=== PATIENT | male | born 1995 | race Caucasian/White ===

== ENCOUNTER 2016-07-18 01:12 | Emergency (ER) | payer BC ==
[2016-07-18] MEDS ORDERED: ONDANSETRON 4 MG/2 ML VIAL ONE (01:49)
[2016-07-18] MEDS ORDERED: PROPOFOL 200 MG/20 ML VIAL ONE ×2 (01:49)
[2016-07-18] MEDS ORDERED: fentaNYL 100 MCG/2 ML INJ ONE (01:49)
[2016-07-18] MEDS ORDERED: ONDANSETRON 4 MG/2 ML VIAL IVP ONE (02:06)
[2016-07-18] MEDS ORDERED: fentaNYL 100 MCG/2 ML INJ IVP ONE ×2 (02:06→02:37)
[2016-07-18] MEDS ORDERED: PROPOFOL 200 MG/20 ML VIAL IVP ONE (02:37)
[2016-07-18] MEDS ORDERED: HYDROCODONE/APAP 5/325 TAB PO ONE (03:28)
--- NOTE | 2016-07-18 03:32 | EDPHY ---
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 He had a reduced a [place]. He is not yet contacted Orthopedics to arrange follow-up. Patient went to bed this evening not wearing his sling. Rolled over in bed and felt a severe onset of pain in his left shoulder. He noted deformity and states that feels like a dislocation again. Patient states that they attempted to relocated shoulder is without sedation in [place] any is unwilling to attempt this again. Pain is currently 9/10. Had no other injuries noted. Last had something the eat about 8 hours ago. Has no past medical history, medications or allergies. ROS: 10 point Review of Systems is negative except as noted in the HPI. Physical exam: Gen: Awake, Alert, No Distress HEENT: Nose: no rhinorrhea Eyes: PERRLA, EOMI Mouth: Moist mucosa Neck: Supple, no JVD Chest: nontender, lungs clear to auscultation Heart: S1, S2 normal, no murmur Abd: Soft, non-tender, no guarding Back: no CVA tenderness, no midline tenderness Ext: Left shoulder is obviously deformed consistent with an anterior shoulder dislocation, sensations intact along the deltoid and distally in the Radial, median, and ulnar nerve distribution Skin: no rash Neuro: CN II-XII intact, Sensation grossly intact, Strength 5/5 in bilateral upper and lower extremities ED Course: Procedure: Procedural sedation. A pre-sedation evaluation was completed on the patient at 0130. Patient is an appropriate candidate for procedural sedation. The risks of the sedation were discussed with the patient. A time out was completed. The patient was sedated with 50 mcg of fentanyl and 130 mg of propofol. The patient was monitored with continuous pulse oximetry and compliance monitor. There were no complications and no significant hypoxemia. I remained at the bedside for the sedation. The total time I spent in the procedural sedation was 15 minutes. Procedure: Dislocation reduction. The dislocation of the left shoulder was reduced using traction was-counter traction with external rotation technique without complications. Post reduction the patient's neurovascular exam is normal. Post reduction x-ray demonstrates reduction of the joint to the anatomic position. The procedure was performed by myself. - Data Points Medications Given: Discontinued Medications Fentanyl (Sublimaze) 100 mcg IVP ONCE ONE Stop: 07/18/16 02:07 Last Admin: 07/18/16 02:06 Dose: 100 mcg Fentanyl (Sublimaze) 50 mcg IVP EDNOW ONE Stop: 07/18/16 02:38 Last Admin: 07/18/16 02:29 Dose: 50 mcg Ondansetron HCl (Zofran) 4 mg IVP EDNOW ONE Stop: 07/18/16 02:07 Last Admin: 07/18/16 02:06 Dose: 4 mg Propofol (Diprivan) 130 mg IVP EDNOW ONE Stop: 07/18/16 02:38 Last Admin: 07/18/16 02:27 Dose: 130 mg General Time Seen by Provider: 07/18/16 01:46 Initial Vital Signs: Initial Vital Signs Temperature (C) 36.5 C 07/18/16 01:23 Heart Rate 70 07/18/16 01:23 Respiratory Rate 18 07/18/16 01:23 Blood Pressure 128/50 H 07/18/16 01:23 O2 Sat (%) 94 07/18/16 01:23 O2 Delivery Mode [Post Room Air Procedure 4th] O2 Delivery Mode [Post Nasal Cannula Procedure 3rd] O2 Delivery Mode [Post Nasal Cannula Procedure 2nd] O2 Delivery Mode [Post Non-Rebreather Mask Procedure 1st] O2 Delivery Mode [.Immediate Non-Rebreather Mask Pre-Procedure] O2 Delivery Mode Room Air O2 (L/minute) [Post Procedure 4 3rd] O2 (L/minute) [Post Procedure 6 2nd] O2 (L/minute) [Post Procedure 15 1st] O2 (L/minute) [.Immediate Pre- 10 Procedure] Allergies/Adverse Reactions: No Known Allergies Allergy (Verified 11/03/15 17:07) Home Medications: Medication Instructions Recorded NK [No Known Home Meds] 07/18/16 Departure - Departure Disposition: Home, Routine, Self-Care Clinical Impression: Shoulder dislocation Condition: Good Instructions: Ondansetron (By mouth), Shoulder Dislocation (ED) Additional Instructions: Keep your arm in the sling until follow-up with Orthopedics. Call for orthopedic follow-up tomorrow. Continue taking Vista as needed for pain. Referrals: OUT OF STATE,. [Primary Care Provider] - As per Instructions Javier Fung MD [Medical Doctor] - As per Instructions
[2016-07-18] MEDS ORDERED: ONDANSETRON 4MG PREPACK#2 BTL TAKEHOME ONE (03:48)
[2016-07-18 03:52] VITALS: BP 115/64; PULSE 81; RESP 16; TEMP 98.2; O2SAT 94
--- NOTE | 2016-07-18 08:21 | DX ---
Left Shoulder, Two Views July 18, 2016 2:39 a.m. Indication: Post reduction. Findings: The bones are anatomically aligned. The humeral head normally articulates with the glenoid on the AP and scapulary Y view. No fracture. Left lung is clear. Impression: Good alignment. No dislocation.
== END 2016-07-18 03:52 | disposition home or self-care (01) ==
PROC: 0RSKXZZ Reposition Left Shoulder Joint, External Approach (ICD-10-PCS; principal; 2016-07-18)
DX: S43.005A Unspecified dislocation of left shoulder joint, initial encounter (principal); X58.XXXA Exposure to other specified factors, initial encounter; Y92.89 Other specified places as the place of occurrence of the external cause
CPT/HCPCS: 96374; J2405; J2704; J3010; L3980